=== PATIENT | female | born 1950 | race Caucasian/White ===

== ENCOUNTER 2020-11-26 08:43 | Outpatient (CLI) | payer MEDICARE, SELFPAY ==
[2020-11-26 08:57] LABS: Basophils Absolute Auto 0.03 K/mm3 (0.00-0.10); Basophils Percent Auto 0.7 % (0.0-1.0); Eosinophils Percent Auto 2.4 % (1.0-6.0); Hematocrit 42.1 % (35.0-42.0); Hemoglobin 14.6 g/dL (11.7-13.8); Immature Granulocyte Absolute 0.01 K/mm3 (0.00-0.00); Immature Granulocyte Percent A 0.2 % (0.0-0.0); Lymphocytes Absolute Auto 1.27 K/mm3 (1.10-4.50); Lymphocytes Percent Auto 30.2 % (18.0-42.0); Mean Corpuscular HGB Conc 34.7 g/dL (32.0-36.0); Mean Corpuscular Hemoglobin 32.4 pg (27.0-31.0); Mean Corpuscular Volume 93.6 fL (78.0-102.0); Mean Platelet Volume 9.7 fl (9.2-11.8); Monocytes Absolute Auto 0.26 K/mm3 (0.10-0.90); Monocytes Percent Auto 6.2 % (2.0-11.0); Neutrophils Absolute Auto 2.5 K/mm3 (1.7-7.2); Neutrophils Percent Auto 60.3 % (50.0-70.0); Platelet Count Result 234 K/mm3 (150-420); Red Cell Distribution Width 12.9 % (11.6-14.4); White Blood Count 4.2 K/mm3 (4.8-10.8)
[2020-11-26 09:55] LABS: Alanine Aminotransferase 28 U/L (14-59); Alkaline Phosphatase 62 U/L (46-116); Anion Gap 10 mmol/L (8-16); Aspartate Amino Transferase 16 U/L (15-37); Bilirubin,Total 1.1 mg/dL (0.00-1.00); Blood Urea Nitrogen 17 mg/dL (7-18); Calcium 9.1 mg/dL (8.5-10.1); Carbon Dioxide 27 mmol/L (21-32); Chloride 105 mmol/L (98-108); Cholesterol 232 mg/dL (0-200); Estimated Glomerular Filt Rate 53; Glucose 94 mg/dL (70-99); HDL Direct 44 mg/dL (40-60); LDL Cholesterol Calculated 152 mg/dL (<130); Osmolality Calculated 295 mOsm/kg (285-295); Potassium 4.7 mmol/L (3.5-5.1); Sodium 142 mmol/L (136-145); Triglycerides 182 mg/dL (0-150)
[2020-11-26 09:56] LABS: Thyroid Stimulating Hormone Reflex 2.77 u/IU/mL (0.36-3.74)
== END 2020-11-26 08:44 | disposition home or self-care (01) ==
LOC: CHSLAB 08:46
PROVIDERS: PCP Nurse Practitioner; Visit Provider Nurse Practitioner
DX: N93.9 Abnormal uterine and vaginal bleeding, unspecified (principal); Z13.6 Encounter for screening for cardiovascular disorders; E03.9 Hypothyroidism, unspecified
CPT/HCPCS: 36415; 80053; 80061; 84443; 85025

== ENCOUNTER 2021-02-07 12:38 | Outpatient (CLI) | payer MEDICARE, SELFPAY ==
--- NOTE | ~2021-02-07 | MM_ITS ---
EXAMINATION: MM screening [facility] HISTORY: Screening TECHNIQUE: Craniocaudal and mediolateral oblique 3-D tomosynthesis images were obtained and synthetic 2-D images were generated. CAD analysis was submitted and interpreted. COMPARISON: Comparison to multiple prior studies sequentially, with oldest reviewed study dated 08/2014. BREAST PARENCHYMAL COMPOSITION: Breast composed of scattered areas of fibroglandular density. FINDINGS: There is no evidence of suspicious mass, calcification, or architectural distortion to sugg est malignancy in either breast. There has been no suspicious interval change. IMPRESSION: 1. No mammographic evidence of malignancy. 2. Recommend routine screening mammography in one year. BI-RADS Category 1: Negative Reviewed, dictated and finalized at location A.
--- NOTE | ~2021-02-07 | DEXA_ITS ---
Bone Density Report Name: Kaitlyn Luong Age: 70 Sex: Female Ethnicity: White Date of : 1950 Indication: postmenopausal; screening for osteoporosis; Referring Provider: Courtney Leger Study: Bone densitometry was performed. Exam Date: February 07, 2021 Accession number: [id number] Bone Density: Region BMD T-score Z-score Classification AP Spine(L1-L4) 1.220 1.6 3.8 Normal Femoral Neck (Left) 0.821 -0.3 1.7 Normal Total Hip (Left) 1.017 0.6 2.2 Normal Femoral Neck (Right) 0.767 -0.7 1.2 Normal Total Hip (Right) 0.963 0.2 1.8 Normal Femoral Neck Mean 0.794 -0.5 1.4 Normal Total Hip Mean 0.990 0.4 2.0 Normal World Health Organization criteria for BMD impression classify patients as: Normal (T-score at or above -1.0), Osteopenia (T-score between -1.0 and -2.5), or Osteoporosis (T-score at or below -2.5). 10-year Fracture Risk: FRAX not reported because: All T-scores for Spine Total, Hip Total, Femoral Neck at or above -1.0 Clinical Information Provided by Patient: Patient maximum height was 68 Menopause Age: 50 No regular weight bearing exercise Does not regularly consume dairy products Onset of menses at age 10 Number of children 2 Impression: The patient has normal bone mass. Discussion: BONE DENSITY IS ABOVE THE MINIMUM DESIRABLE LEVEL AT ALL SKELETAL SITES TESTED. This patient?s bone mineral density is above the minimum desirable level (T-score -1.0 or better) at all sites measured. The patient should follow a healthful lifestyle (good nutrition with adequate calcium and vitamin D, and appropriate weight-bearing exercise). Follow-Up: Consider repeating this study in 5 years or sooner if there is some new clinical indication. Reported by: Dr. Ric Sanderson on 02/07/2021 1:30:00 PM. Reviewed, dictated and finalized at location AAgustin [facility]
== END 2021-02-07 12:39 | disposition home or self-care (01) ==
LOC: CHSIMG 12:39
PROVIDERS: PCP Nurse Practitioner; Visit Provider Nurse Practitioner
DX: Z78.0 Asymptomatic menopausal state (principal); Z12.31 Encounter for screening mammogram for malignant neoplasm of breast
CPT/HCPCS: 77063; 77067; 77080

== ENCOUNTER 2021-03-20 11:40 | Outpatient (CLI) | payer MEDICARE, SELFPAY ==
--- NOTE | ~2021-03-20 | XR_ITS ---
EXAMINATION: XR shoulder RT min 2V DATE: 03/20/2021 12:01 INDICATION: Posterior right shoulder pain TECHNIQUE: AP internally and externally rotated, AP oblique externally rotated and transscapular Y vi ews of the right shoulder were obtained. COMPARISON: None FINDINGS: Diffuse osteopenia. Normal alignment. No fracture. Mild glenohumeral osteoarthritis with inferior pr edominant mild nonuniform joint space narrowing. Moderate to severe acromioclavicular osteoarthritis. Soft tissues are unremarkable. Visualized portions of the right lung are clear. IMPRESSION: Moderate to severe right acromioclavicular and mild glenohumeral osteoarthritis. Reviewed, dictated and finalized at location A. GY DIRECTOR IMPRESSION: Moderate to severe right acromioclavicular and mild glenohumeral osteoarthritis .
== END 2021-03-20 11:41 | disposition home or self-care (01) ==
LOC: CHSIMG 11:43
PROVIDERS: PCP Nurse Practitioner; Visit Provider Nurse Practitioner
DX: M25.511 Pain in right shoulder (principal)
CPT/HCPCS: 73030

== ENCOUNTER 2022-01-13 09:23 | Outpatient (CLI) | payer MEDICARE, SELFPAY ==
[2022-01-13 10:02] LABS: Alanine Aminotransferase 30 U/L (14-59); Albumin Level 3.9 g/dL (3.4-5.0); Alkaline Phosphatase 70 U/L (46-116); Anion Gap 3 mmol/L (8-16); Aspartate Amino Transferase 14 U/L (15-37); Bilirubin,Total 0.9 mg/dL (0.00-1.00); Blood Urea Nitrogen 14 mg/dL (7-18); Calcium 8.9 mg/dL (8.5-10.1); Carbon Dioxide 30 mmol/L (21-32); Chloride 102 mmol/L (98-108); Cholesterol 217 mg/dL (0-200); Estimated Glomerular Filt Rate 51; Glucose 102 mg/dL (70-99); HDL Direct 42 mg/dL (40-60); LDL Cholesterol Calculated 132 mg/dL (<130); Osmolality Calculated 280 mOsm/kg (285-295); Potassium 4.5 mmol/L (3.5-5.1); Sodium 135 mmol/L (136-145); Total Protein 6.8 g/dL (6.4-8.2); Triglycerides 214 mg/dL (0-150)
[2022-01-13 10:28] LABS: Thyroid Stimulating Hormone Reflex 3.17 u/IU/mL (0.36-3.74)
[2022-01-13 10:40] LABS: Basophils Absolute Auto 0.03 K/mm3 (0.00-0.10); Basophils Percent Auto 0.6 % (0.0-1.0); Eosinophils Percent Auto 4.1 % (1.0-6.0); Hemoglobin 13.8 g/dL (11.7-13.8); Immature Granulocyte Absolute 0.01 K/mm3 (0.00-0.00); Immature Granulocyte Percent A 0.2 % (0.0-0.0); Lymphocytes Absolute Auto 1.67 K/mm3 (1.10-4.50); Lymphocytes Percent Auto 33.9 % (18.0-42.0); Mean Corpuscular HGB Conc 34.5 g/dL (32.0-36.0); Mean Corpuscular Hemoglobin 32.7 pg (27.0-31.0); Mean Corpuscular Volume 94.8 fL (78.0-102.0); Mean Platelet Volume 10.3 fl (9.2-11.8); Monocytes Absolute Auto 0.39 K/mm3 (0.10-0.90); Monocytes Percent Auto 7.9 % (2.0-11.0); Neutrophils Absolute Auto 2.6 K/mm3 (1.7-7.2); Neutrophils Percent Auto 53.3 % (50.0-70.0); Platelet Count Result 237 K/mm3 (150-420); Red Blood Count 4.22 M/mm3 (4.20-5.40); White Blood Count 4.9 K/mm3 (4.8-10.8)
[2022-01-15 17:19] LABS: Vitamin D 25 Hydroxy 29 ng/mL (30-100)
== END 2022-01-13 09:24 | disposition home or self-care (01) ==
LOC: CHSLAB 09:25
PROVIDERS: PCP Nurse Practitioner; Visit Provider Nurse Practitioner
DX: E78.2 Mixed hyperlipidemia (principal); E78.5 Hyperlipidemia, unspecified; E03.9 Hypothyroidism, unspecified; E55.9 Vitamin D deficiency, unspecified
CPT/HCPCS: 36415; 80053; 80061; 82306; 84443; 85025

== ENCOUNTER 2023-03-05 10:05 | Outpatient (CLI) | payer MEDICARE, SELFPAY ==
--- NOTE | ~2023-03-05 | DEXA_ITS ---
Bone Density Report Name: RICH PATTERSON Age: 72 Sex: Female Ethnicity: White Date of : 1950 Indication: postmenopausal; screening for osteoporosis; height loss; Referring Provider: SIVA, RAMSES Meyers Study: Bone densitometry was performed. Exam Date: March 05, 2023 Accession number: [id number] Bone Density: Region BMD T-score Z-score Classification AP Spine(L1-L4) 1.240 1.8 4.1 Normal Femoral Neck (Left) 0.796 -0.5 1.6 Normal Total Hip (Left) 1.014 0.6 2.3 Normal Femoral Neck (Right) 0.731 -1.1 1.0 Osteopenia Total Hip (Right) 0.958 0.1 1.9 Normal Femoral Neck Mean 0.764 -0.8 1.3 Normal Total Hip Mean 0.986 0.4 2.1 Normal World Health Organization criteria for BMD impression classify patients as: Normal (T-score at or above -1.0), Osteopenia (T-score between -1.0 and -2.5), or Osteoporosis (T-score at or below -2.5). 10-year Fracture Risk(1): Major Osteoporotic Fracture 9.5% Hip Fracture 1.4% Reported Risk Factors: [place] (), Neck BMD=0.731, BMI=31.0 (1) FRAX(R) Version 3.08. Fracture probability calculated for an untreated patient. Fracture probability may be lower if the patient has received treatment. Clinical Information Provided by Patient: Patient maximum height was 68 Menopause Age: 50 No regular weight bearing exercise Onset of menses at age 10 Number of children 2 Impression: The patient has low bone mass, based on the Right Femoral Neck T-score. Discussion: BONE DENSITY IS LOW AT ONE OR MORE SKELETAL SITES. This patient's lowest T-score is low at one or more skeletal sites. It meets the World Health Organization's (WHO) criteria for ?low bone mass? (T-score between -1.0 and -2.5). The patient's 10-year risk of fracture as calculated by FRAX is less than the threshold where pharmacological therapy is recommended by the National Osteoporosis Foundation (NOF). However, all treatment decisions require clinical judgment and consideration of individual patient factors, including patient preferences, comorbidities, previous drug use, risk factors not captured in the FRAX model (e.g., frailty, falls, vitamin D deficiency, increased bone turnover, interval significant decline in bone density) and possible under or overestimation of fracture risk by FRAX. The patient should follow a healthful lifestyle (good nutrition with adequate calcium and vitamin D, and appropriate weight-bearing exercise). Follow-Up: Consider repeating this study in 2 to 3 years to reassess this patient's status, or sooner if there is some new clinical indication. Reported by: Dr. Ric Sanderson on 03/05/2023 10:33:00 AM. Reviewed, dictated and finalized at location A.
[2023-03-05 10:52] LABS: Cholesterol 214 mg/dL (0-200); Glucose 96 mg/dL (70-99); HDL Direct 41 mg/dL (40-60); LDL Cholesterol Calculated 131 mg/dL (<130); Triglycerides 209 mg/dL (0-150)
[2023-03-08 11:53] LABS: Hepatitis C Virus Antibody Nonreactive
== END 2023-03-05 10:06 | disposition home or self-care (01) ==
LOC: CHSIMG 10:08
PROVIDERS: PCP Family Medicine; Visit Provider Family Medicine
DX: Z78.0 Asymptomatic menopausal state (principal); Z13.1 Encounter for screening for diabetes mellitus; Z11.59 Encounter for screening for other viral diseases; Z13.6 Encounter for screening for cardiovascular disorders; M85.88 Other specified disorders of bone density and structure, other site
CPT/HCPCS: 36415; 77080; 80061; 82947; 86803

== ENCOUNTER 2023-06-04 11:04 | Outpatient (CLI) | payer MEDICARE, SELFPAY ==
[2023-06-04 12:35] LABS: Alanine Aminotransferase 33 U/L (14-59); Albumin Level 3.7 g/dL (3.4-5.0); Alkaline Phosphatase 55 U/L (46-116); Anion Gap 12 mmol/L (8-16); Aspartate Amino Transferase 16 U/L (15-37); Bilirubin,Total 0.7 mg/dL (0.00-1.00); Blood Urea Nitrogen 22 mg/dL (7-18); Calcium 8.8 mg/dL (8.5-10.1); Carbon Dioxide 25 mmol/L (21-32); Chloride 102 mmol/L (98-108); Cholesterol 217 mg/dL (0-200); Estimated Glomerular Filt Rate 52; Glucose 113 mg/dL (70-99); HDL Direct 46 mg/dL (40-60); LDL Cholesterol Calculated 126 mg/dL (<130); Osmolality Calculated 292 mOsm/kg (285-295); Potassium 4.6 mmol/L (3.5-5.1); Sodium 139 mmol/L (136-145); Total Protein 6.6 g/dL (6.4-8.2); Triglycerides 227 mg/dL (0-150)
== END 2023-06-04 11:05 | disposition home or self-care (01) ==
LOC: CHSLAB 11:09
PROVIDERS: PCP Family Medicine; Visit Provider Family Medicine
DX: E78.00 Pure hypercholesterolemia, unspecified (principal)
CPT/HCPCS: 36415; 80053; 80061

== ENCOUNTER 2024-07-02 09:17 | Outpatient (CLI) | payer MEDICARE, SELFPAY ==
--- NOTE | ~2024-07-02 | XR_ITS ---
AP view of the pelvis and AP and lateral views of the bilateral hips Clinical history: Pain Findings: No acute fracture or dislocation is seen. Osseous alignment is anatomic. Bilateral hip and SI joint spaces are preserved. Soft tissues are unremarkable. Impression: No significant abnormality is seen. Reviewed, dictated and finalized at location . Impression: No significant abnormality is seen.
--- OUTSIDE RECORDS SUMMARY | 2024-07-02 09:22 | XMS_ITS | Referral Summary ---
Author Organization [facility] Address [address] [place] [address] Care Team Providers Care Animal Caretaker Supervisor Name Role Phone Samantha Barraza MD Primary Care Provider [phone] Source Comments [facility],non-owned Affiliates and Associated Physician Practices is amultiple site organization consisting of ambulatory clinics and hospital sitesin [place], [place], [place] and [place]. This disclosure is being madepursuant to the Care Everywhere program and may not contain all information available regarding this patient. Last updated 18.[facility] Social History Tobacco Use Types Packs/Day Years Used Date Smoking Tobacco: Never Assessed Sex and Gender Information Value Date Recorded Sex Assigned at Not on file Gender Identity Not on file Sexual Orientation Not on file Plan of Treatment Not on file Care Teams Animal Caretaker Supervisor Relationship Specialty Start Date End Date Samantha Barraza MD PCP - General 11/20/16
--- OUTSIDE RECORDS SUMMARY | 2024-07-02 09:22 | XMS_ITS | Clinical Summary ---
Author Organization [facility] Address [address] [place] [address] Care Team Providers Care Photographer Aerial Name Role Phone Samantha Barraza MD Primary Care Provider [phone] Source Comments [facility],non-owned Affiliates and Associated Physician Practices is amultiple site organization consisting of ambulatory clinics and hospital sitesin [place], [place], [place] and [place]. This disclosure is being madepursuant to the Care Everywhere program and may not contain all information available regarding this patient. Last updated 18.[facility] Social History Tobacco Use Types Packs/Day Years Used Date Smoking Tobacco: Never Assessed Sex and Gender Information Value Date Recorded Sex Assigned at Not on file Gender Identity Not on file Sexual Orientation Not on file Plan of Treatment Health Maintenance Due Date Last Done Comments BONE DENSITY TESTING 1950 COLOGUARD (AGES 45-75) - COL ON CA SCREENING 1950 COLON MONITORING 1950 COLONOSCOPY - COLON CA SCREENING 1950 CT COLONOGRAPHY - COLON CA SCREENING 1950 Colorectal Cancer Screening 1950 FIT - COLON CA SCREENING 1950 FLEX SIG - COLON CA SCREENING 1950 LIPID TESTING 1950 MAMMOGRAM 1950 HEPATITIS C SCREENING 12/24/1966 DTAP/TDAP/TD VACCINES (1 - Tdap) 12/29/1967 PNEUMOCOCCAL VACCINE 50+ (1 of 1 - PCV) 1998 ZOSTER VACCINE (1 of 2) 1998 COVID-19 VACCINE ( - 2023-2 5 season) 2023 INFLUENZA VACCINE (#1) 2023 Respiratory Syncytial Virus (RSV) Vaccine Pt: or over 60 yrs (1 - 1-dose 75+ series) 12/29/2023 DEPRESSION SCREENING 04/27/2024 HEPATITIS B VACCINE Aged Out No longe r eligible based on patient's age to complete this topic HIB VACCINE Aged Out No longer eligi ble based on patient's age to complete this topic HPV VACCINE Aged Out No longer eligi ble based on patient's age to complete this topic MENINGOCOCCAL (Group B) VACCINE Aged Out No longer eligible based on patient's age to complete this topic MENINGOCOCCAL VACCINE Aged Out No francisca amber eligible based on patient's age to complete this topic Care Teams Photographer Aerial Relationship Specialty Start Date End Date Samantha Barraza MD PCP - General 11/20/16
--- OUTSIDE RECORDS SUMMARY | 2024-07-02 09:22 | XMS_ITS | Patient Health Summary ---
Author Organization [facility] Address [address] [place] [address] Care Team Providers Care Strap Buckler Name Role Phone Samantha Barraza MD Primary Care Provider [phone] Note from [facility],non-owned Affiliates and Associated Physician Practices is amultiple site organization consisting of ambulatory clinics and hospital sitesin [place], [place], [place] and [place]. This disclosure is being madepursuant to the Care Everywhere program and may not contain all information available regarding this patient. Last updated 18.[facility] Social History Tobacco Use Types Packs/Day Years Used Date Smoking Tobacco: Never Assessed Sex and Gender Information Value Date Recorded Sex Assigned at Not on file Gender Identity Not on file Sexual Orientation Not on file Procedures * MRI BREAST BILAT WWO CONTRAST(Performed 11/20/2016) Results * MRI BREAST BILAT WWO CONTRAST (11/20/2016 9:23 AM CDT) Anatomical Region Laterality Modality Breast Bilateral Other Impressions 11/20/2016 11:49 AM CDT IMPRESSION: 1. Right breast: Spiculated mass in the lower central breast represents patient's biopsy-proven invasive ductal carcinoma. No evidence of multifocal disease, chest wall invasion, or axillary lymphadenopathy. 2. Left breast: No evidence of malignancy. ASSESSMENT: BI-RADS category 6: Known biopsy-proven cancer. RECOMMENDATION: Patient is already under the care of Dr. Camara. I, Dr. VIV MOLINA M.D. have personally reviewed and interpreted this examination/study. This report was electronically signed by VIV MOLINA M.D. on 11/20/2016 11:49 AM . Narrative 11/20/2016 11:49 AM CDT EXAMINATION: Magnetic resonance imaging (MRI) of the bilateral breasts without and with contrast TECHNIQUE: Multiplanar multisequence MRI imaging of both breasts before and following the administration of 8 mL Gadavist intravenous gadolinium contrast. Dynamic phase imaging was performed in the axial plane. Exam processed by and interpreted on a [employer] bartender server including 3-D volume rendering, subtraction image processing and, contrast kinetic analysis. HISTORY: 65-year-old female with outside institution biopsy-proven invasive ductal carcinoma in the lower inner right breast. COMPARISON: Comparison is made with mammograms from 01/08/2016, 07/13/2014, and 06/01/2014 as well as ultrasound breast from 07/13/2014 from [facility]. FINDINGS: Background tissue pattern: Scattered fibroglandular. Degree of background parenchymal enhancement: minimal. Right breast: An arterially enhancing spiculated mass in the lower central right breast representing the patient's biopsy-proven invasive ductal carcinoma measures 1.0 x 0.7 cm (series 7 image 90). The biopsy clip is immediately medial to the mass. No satellite lesion or additional suspicious area of enhancement is identified in the right breast. There is no abnormality of the right axilla, chest wall, or nipple areolar complex. Left breast: There is no suspicious mass or area of abnormal enhancement in the left breast. There is no abnormality of the left axilla, chest wall, or nipple areolar complex. Procedure Note Viv Molina MD - 07/24/2017 EXAMINATION: Magnetic resonance imaging (MRI) of the bilateral breastswithout and with contrast TECHNIQUE: Multiplanar multisequence MRI imaging of both breasts beforeand following the administration of 8 mL Gadavist intravenous gadoliniumcontrast. Dynamic phase imaging was performed in the axial plane. Examprocessed by and interpreted on a [employer] bartender server including 3-D volume rendering, subtraction imageprocessing and, contrast kinetic analysis. HISTORY: 65-year-old female with outside institution biopsy-proveninvasive ductal carcinoma in the lower inner right breast. COMPARISON: Comparison is made with mammograms from 01/08/2016, 07/13/2014,and 06/01/2014 as well as ultrasound breast from 07/13/2014 from [facility]. FINDINGS: Background tissue pattern: Scattered fibroglandular. Degree of background parenchymal enhancement: minimal. Right breast: An arterially enhancing spiculated mass in the lower centralright breast representing the patient's biopsy-proven invasive ductalcarcinoma measures 1.0 x 0.7 cm (series 7 image 90). The biopsy clip isimmediately medial to the mass. No satellite lesion or additional suspicious area of enhancement isidentified in the right breast. There is no abnormality of the rightaxilla, chest wall, or nipple areolar complex. Left breast: There is no suspicious mass or area of abnormal enhancementin the left breast. There is no abnormality of the left axilla, chestwall, or nipple areolar complex. IMPRESSION IMPRESSION: 1. Right breast: Spiculated mass in the lower central breast representspatient's biopsy-proven invasive ductal carcinoma. No evidence ofmultifocal disease, chest wall invasion, or axillary lymphadenopathy. 2. Left breast: No evidence of malignancy. ASSESSMENT: BI-RADS category 6: Known biopsy-proven cancer. RECOMMENDATION: Patient is already under the care of Dr. Camara. I, Dr. VIV MOLINA M.D. have personally reviewed and interpretedthis examination/study. This report was electronically signed by VIV MOLINA M.D. on11/20/2016 11:49 AM . Historical Provider MD [facility] Care Teams Strap Buckler Relationship Specialty Start Date End Date Samantha Barraza MD PCP - General 11/20/16
== END 2024-07-02 09:18 | disposition home or self-care (01) ==
LOC: CHSIMG 09:19
PROVIDERS: PCP Family Medicine; Visit Provider Family Medicine
DX: M70.62 Trochanteric bursitis, left hip (principal)
CPT/HCPCS: 73521

== ENCOUNTER 2025-02-24 14:05 | Outpatient (CLI) | payer MEDICARE, SELFPAY ==
--- NOTE | ~2025-02-24 | US_ITS ---
EXAMINATION: US pelvic complete INDICATION: N95.0 - Postmenopausal bleeding TECHNIQUE: Multiple transabdominal and transvaginal sonographic images of the pelvis were obtained. COMPARISON: None. FINDINGS: Uterus: The uterus is lobulated and contains multiple masses, consistent with fibroids. The largest one measures 7.6 cm in greatest diameter. The endometrium appears normal, with a thickness of 11 mm. Right Ovary: There is a soft tissue structure on the right which could represent an exophytic fibroid or an enlarged right ovary. The former is favored. Left Ovary: The left ovary appears normal.. Vascular flow is present. There is no free fluid in the pelvis. IMPRESSION: Enlarged fibroid uterus. Probable exophytic fibroid to the right versus less likely enlarged right ovary. The right ovary is not seen as a separate structure. This is not unusual. Reviewed, dictated and finalized at location A. IMPRESSION: Enlarged fibroid uterus. Probable exophytic fibroid to the right versus less li jazmyne enlarged right ovary. The right ovary is not seen as a separate structure. This is not unusual.
--- OUTSIDE RECORDS SUMMARY | 2025-02-24 14:08 | XMS_ITS | Clinical Summary ---
Author Organization [facility] Address [address] [place] [address] Care Team Providers Care Regional Transportation Manager Name Role Phone Unavailable Primary Care Provider Unavailabl e Encounters Date Type Department Care Team Description 01/03/2025 Telephone [facility] [address] [place] [address] Lety Christianson MD Orders (Heart Monitor ) from Last 3 Months Social History Tobacco Use Types Packs/Day Years Used Date Smoking Tobacco: Never Assessed Comments Unknown Sex and Gender Information Value Date Recorded Sex Assigned at Not on file Legal Sex Female 7:35 PM CDT Gender Identity Not on file Sexual Orientation Not on file Plan of Treatment Health Maintenance Due Date Last Done Comments Hepatitis C 1966 DTaP, Tdap and Td Vaccines ( 1 - Tdap) 12/29/1967 Pneumococcal Vaccine: 50+ Ye ars (1 of 1 - PCV) 1998 Zoster Vaccines (1 of 2) 1998 Annual Medicare Wellness Visit 2013 Dexa Scan (General) 2013 RSV Immunization or 60+ Years (1 - 1-dose 75+ series) 12/29/2023 COVID-19 Vaccine (2024-2 6 season) 2024 Influenza Adult (#1) 2025 Hepatitis A Vaccines Aged Out No long er eligible based on patient's age to complete this topic Meningococcal B Vaccine Aged Out No l onger eligible based on patient's age to complete this topic Meningococcal Vaccine Aged Out No francisca amber eligible based on patient's age to complete this topic RSV Immunizations Under 20 Months Aged Out No longer eligible based on patient's age to complete this topic Insurance [employer]ET[employer] MEDICARE
--- OUTSIDE RECORDS SUMMARY | 2025-02-24 14:08 | XMS_ITS | Clinical Summary ---
Author Organization [facility] Address [address] [place] [address] Care Team Providers Care Student Teaching Coordinator Name Role Phone Samantha Barraza MD Primary Care Provider [phone] Source Comments [facility],non-owned Affiliates and Associated Physician Practices is amultiple site organization consisting of ambulatory clinics and hospital sitesin [place], [place], [place] and [place]. This disclosure is being madepursuant to the Care Everywhere program and may not contain all information available regarding this patient. Last updated 18.[facility] Social History Tobacco Use Types Packs/Day Years Used Date Smoking Tobacco: Never Assessed Comments Unknown Sex and Gender Information Value Date Recorded Sex Assigned at Not on file Legal Sex Female 5:33 PM BUS ESCORT Gender Identity Not on file Sexual Orientation Not on file Plan of Treatment Health Maintenance Due Date Last Done Comments BONE DENSITY TESTING 1950 HEPATITIS C SCREENING 12/24/1966 DTAP/TDAP/TD VACCINES (1 - Tdap) 12/29/1967 PNEUMOCOCCAL VACCINE 50+ (1 of 1 - PCV) 1998 ZOSTER VACCINE (1 of 2) 1998 Respiratory Syncytial Virus (RSV) Vaccine Pt: or over 60 yrs (1 - 1-dose 75+ series) 12/29/2023 DEPRESSION SCREENING 04/27/2024 COVID-19 VACCINE ( - 2023-2 5 season) 2024 INFLUENZA VACCINE (#1) 2024 HEPATITIS B VACCINE Aged Out No longe r eligible based on patient's age to complete this topic HIB VACCINE Aged Out No longer eligi ble based on patient's age to complete this topic HPV VACCINE Aged Out No longer eligi ble based on patient's age to complete this topic MENINGOCOCCAL (Group B) VACC INE SHARED DECISION-MAKING Aged Out No longer eligibl e based on patient's age to complete this topic MENINGOCOCCAL GROUPS A/C/Y/W VACCINE Aged Out No longer eligible b ased on patient's age to complete this topic Care Teams Student Teaching Coordinator Relationship Specialty Start Date End Date Samantha Barraza MD PCP - General 11/20/16
== END 2025-02-24 14:06 | disposition home or self-care (01) ==
LOC: CHSIMG 14:06
PROVIDERS: PCP Family Medicine; Visit Provider Nurse Practitioner Family
DX: N95.0 Postmenopausal bleeding (principal); D25.9 Leiomyoma of uterus, unspecified
CPT/HCPCS: 76856

== ENCOUNTER 2025-04-14 02:51 | Day surgery (SDC) | payer MEDICARE, SELFPAY ==
[2025-04-12 09:49] VITALS: BMI 26.9
--- NOTE | 2025-04-12 09:57 | PC.NURSE ---
Addendum entered by Bhumi Odom RN 04/12/25 10:02: PT INSTRUCTED TO TAKE FLUOXETINE, LEVOTHYROXINE AND A PAIN PILL IF NEEDED MORNING OF SURGERY Original Note: [facility] has started construction of its new state of the art ER which will open Spring 2026. With this, we anticipate parking may be a challenge for some our surgical patients and families. Parking spaces are limited but are available for all Surgical, obstetrics, and ER patients sharing this lot. If you arrive and find you are having a hard time finding a parking space, please note that we understand the challenges, please drive around the hospital and park near Hospital Entrance 1. When you enter this entrance, you can ask a volunteer to direct or take you back to the surgical waiting area to check in. We appreciate everyone?s understanding of these expected challenges while we build for your future. Report to the Outpatient Waiting Room, entrance under the green pavilion located off [address], at time _1130_ on date ___04/14/25_. Planned Procedure Time: _1330__.? Time changes happen often and if your time is changed the preop area will call you the afternoon before. - You and your visitor will be asked to self-screen and do not enter if you have any COVID symptoms. Please call surgeon if you need to reschedule. - A mask is optional within the hospital at this time. Patients may have clear liquids (water, carbonated beverages, clear teas, apple juice) until 3 hours prior to surgery with a maximum of 20 ounces. - No food from midnight until time of surgery and no smoking, or chewing tobacco (or any form of nicotine). No chewing gum, candy or mints. Take only the following medications with a SIP of water on the morning of surgery: DO NOT STOP ANY OF YOUR OTHER PRESCRIPTION MEDICATIONS PRIOR TO SURGERY EXCEPT THE FOLLOWING Hold all vitamins and supplements for 3 days per anesthesiologist. Medications to discontinue per physician Date to take last dose Please no make-up, nail georgian, hairspray, perfume, deodorant, or body powder the day of surgery.? No jewelry (including any body piercings) or valuables the day of surgery, leave them at home.? Please take a shower or bath the night before, or the morning of, surgery with an antibacterial soap.? Wear comfortable, loose fitting clothing.? Children are encouraged to wear pajamas. - Jewelry must be removed prior to entering the operating room.? Rings and piercings that are not removed may be cut off. - The hospital will not accept responsibility for valuables.? - Please leave all valuables, including medications, at home the day of surgery. If you are going home after surgery, a licensed parts delivery driver must drive you home.? - NO public transportation without another adult if you receive anesthesia. - We recommend that an adult stay with you for 24 hours following discharge. - We also recommend that you do not drive, make important decision, drink alcoholic beverages, or take any drugs that were not prescribed by your health care provider for at least 24 hours after your discharge time. For Pediatric surgeries, we recommend two adults accompany the child home. Follow any additional instructions given to you from your surgeon. Telephone instructions given to _PATIENT_and asked if any additional questions and then verbalized understanding. Patient advised to call surgeon office or pre surgery nurse liaison [phone] if any additional questions.
--- OUTSIDE RECORDS SUMMARY | 2025-04-14 02:54 | XMS_ITS | Clinical Summary ---
Author Organization [facility] Address [address] [place] [address] Care Team Providers Care Blue Prints Trimmer Name Role Phone Unavailable Primary Care Provider Unavailabl e Social History Tobacco Use Types Packs/Day Years [...] - 1-dose 75+ series) 12/29/2023 COVID-19 Vaccine ( - 2024-2 6 season) 2024 Influenza Adult (#1) 2025 [...]
--- OUTSIDE RECORDS SUMMARY | 2025-04-14 02:54 | XMS_ITS | Clinical Summary ---
Author Organization [facility] Address [address] [place] [address] Care Team Providers Care Area Operations Director Name Role Phone Samantha Barraza MD Primary Care Provider [phone] Source Comments [facility],non-owned Affiliates and Associated Physician Practices is amultiple site organization consisting of ambulatory clinics and hospital sitesin [place], [place], [place] and [place]. This disclosure is being madepursuant to the Care Everywhere program and may not contain all information available regarding this patient. 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
--- NOTE | 2025-04-14 10:15 | PM.IMHP2 ---
H&P: HPI History of Present Illness Date/Time: 04/14/25 10:15 Chief Complaint: Postmenopausal bleeding Narrative: 74 y/o who has had abdominal pain and vaginal bleeding for months. She also has had a lot of low abdominal pain. A pelvic ultrasound exam on 02/24/25 which shows multiple uterine masses consistent with fibroids, the largest measuring 7.6 cm. The endometrial complex is 11 mm thick. She was unable to tolerate an exam in the office. I have recommended hysteroscopy with D&C to assess the endometetrium. Review of Systems Review of Systems: All systems reviewed & are unremarkable except as noted in HPI and below PMFSH Past Medical History Medical History Vaginal bleeding Depression Acquired hypothyroidism History of pulmonary embolism Surgical History Surgical History S/P partial thyroidectomy Family History Family History Sibling Cerebrovascular accident, Onset Age: 72 Social History Social History Smoking packs per day: 1 Smoking cigarettes per day: 20.0 Years smoked: 10 Smoking pack-years: 10.00 Smoking status: Former smoker Smoking end date: 04/27/88 Additional smoking assessment comments: QUIT 1999 Alcohol intake: former Living arrangements: alone Meds Home Medications and Allergies Home Medications ?Medication ?Instructions ?Recorded ?Confirmed ?Type levothyroxine 50 mcg tablet 50 mcg PO DAILY #90 tabs 06/09/22 04/12/25 Rx fluoxetine 20 mg capsule 20 mg PO DAILY #30 caps 09/29/22 04/12/25 Rx oxycodone-acetaminophen 5 mg-325 1 tablet PO Q6H PRN pain #20 tabs 04/13/25 Rx mg tablet (Endocet) Allergies Allergy/AdvReac Type Severity Reaction Status Date / Time Penicillins Allergy Unknown unknown Verified 04/12/25 09:44 Exam Const: Orientation/consciousness: patient oriented x3 Other: Well-developed, well-nourished female in no acute distress. Neck: Thyroid: thyroid normal Lymphatic: no lymphadenopathy noted (in neck, axilla or inguinal nodes) Resp: Effort & Inspection: normal respiratory effort Auscultation: clear to auscultation bilaterally Cardio: Rate: regular rate Rhythm: regular rhythm Heart sounds: S1 normal heart sound present and S2 normal heart sound present GI: Other: ABD: Soft, with an obvious pelvic mass that is globular and approximately 15 weeks gestational size. The mass is tender to palpation, but the remainder of the abdominal exam is nontender. No guarding or rebound tenderness. No hepatosplenomegaly. No umbilical or inguinal hernias noted. : General: Yes no CVA tenderness Other: Deferred. Back/Spine/Pelvis: Back: no CVA tenderness Skin: General skin exam: normal color and no rashes or lesions noted Neuro: General: patient oriented x3 Extrem: Other: Extremities: nontender with no edema Psych: Mental Status: mental status grossly normal Affect: normal affect Assessment and Plan Assessment and plan (1) Post-menopausal bleeding: Code(s): N95.0 - Postmenopausal bleeding Status: Acute Assessment and Plan: A: New onset painful pelvic mass with vaginal bleeding. P: I told the patient and her daughter that this is suspicious for cancer. I think the first step should be to sample the endometrium. Since this is not feasible in the office, I have offered hysteroscopy with dilation and sharp curettage in the operating room. She understands risks of surgery to include risks of anesthesia, risks of pain, infection, bleeding, blood products, thromboembolic phenomena and damage to adjacent structures such as bowel, bladder, ureters, blood vessels and nerves. She understands all these risks and elects to proceed with surgery. (2) Pelvic pain: Qualifiers: Laterality: bilateral Qualified Code(s): R10.23 - Pelvic and perineal pain bilateral Code(s): R10.20 - Pelvic and perineal pain unspecified side Status: Acute
[2025-04-14 11:25] VITALS: BP 150/61; PULSE 84; RESP 16; TEMP 36.3; O2SAT 100; BMI 26.4
--- NOTE | 2025-04-14 11:59 | WPDHPUPDATE1 ---
History and Physical Update Update Date/Time: 04/14/25 11:59 History and Physical has been reviewed, including an updated exam of the patient. There are NO changes in the patient's condition. Risks, benefits, and alternatives have been discussed and questions answered. Patient agrees to proceed with procedure.
[2025-04-14] MEDS: LACTATED RINGERS 1,000 ML 30 ML IV CONT (12:00)
[2025-04-14] MEDS: fentaNYL CITRATE INJ (*CRX) 100 MCG/2 ML VIAL 25 MCG IV PUSH ×2 (12:07→13:19)
[2025-04-14] MEDS: ACETAMINOPHEN 500 MG TABLET 1000 MG PO (12:09)
--- NOTE | 2025-04-14 13:22 | WPDANESEPP ---
Anes - Eval Pre Procedure Procedure: Operation Date: 04/14/25 13:30 Proposed Procedures p Hysteroscopy, Dilation and Curettage with Removal Any Endometrial Lesions as Needed - Du Minaya MD Date/Time: 04/14/25 13:22 Pre Op Diagnosis: post menopausal bleeding,pelvic pain,pelvic mass Patient Data Age: 74 Gender: F Height: 1.7 m Weight: 76.6 kg Last Vital Signs Temp 36.3 C L 04/14/25 11:25 Pulse 84 04/14/25 11:25 Resp 16 04/14/25 11:25 BP 150/61 H 04/14/25 11:25 Pulse Ox 100 04/14/25 11:25 O2 Del Method Room Air 04/14/25 11:25 Allergies Allergy/AdvReac Type Severity Reaction Status Date / Time Penicillins Allergy Unknown unknown Verified 04/12/25 09:44 Home Medications ?Medication ?Instructions ?Recorded ?Confirmed ?Type levothyroxine 50 mcg tablet 50 mcg PO DAILY #90 tabs 06/09/22 04/12/25 Rx fluoxetine 20 mg capsule 20 mg PO DAILY #30 caps 09/29/22 04/12/25 Rx oxycodone-acetaminophen 5 mg-325 1 tablet PO Q6H PRN pain #20 tabs 04/13/25 Rx mg tablet (Endocet) Patient hx anesthesia problems: none Family hx anesthesia problems: none Results Review: All pre-operative results and documents have been reviewed as part of the pre-operative evaluation. [facility]LY [facility] Past Medical History Medical History Vaginal bleeding Depression Acquired hypothyroidism History of pulmonary embolism Surgical History Surgical History S/P partial thyroidectomy Family History Family History Sibling Cerebrovascular accident, Onset Age: 72 Social History Social History Smoking packs per day: 1 Smoking cigarettes per day: 20.0 Years smoked: 10 Smoking pack-years: 10.00 Smoking status: Former smoker Smoking end date: 04/27/88 Additional smoking assessment comments: QUIT 1999 Alcohol intake: former Living arrangements: alone Exam Day of Procedure 04/14/25 13:22 Patient weight: normal Neurological: alert and oriented
[2025-04-14] MEDS: LIDOCAINE 1% LOCAL INJ 10 ML VIAL INFILTRATE (13:50)
--- NOTE | 2025-04-14 13:59 | S_PTH ---
PATIENT: Kaitlyn Luong LOC: [facility] U#:[id number] AGE/SX: 74/F ROOM: RE04/14/[address]: Du Minaya MD : [id number] BED: DIS: 04/14/2025 SPEC #: [id number] RECD: 04/17/25 07:18 STATUS: ZENOBIA RE #: [id number] KACI: 04/14/25 13:[address]: Du Minaya DEPT: [facility] Surgical RECD BY: Sneha Mai ENTERED: 04/17/25 07:18 SP TYPE: Surgical OTHR DR: Lety Christianson, Tissues: A - Endometrial Curettings Procedures: Hematoxylin and Eosin Stain Estrogen Receptor Immuno Progestogen Receptor immuno Gross and Microscopic Level 4 P53 MLH1 MSH2 MSH6 PMS2
--- NOTE | 2025-04-14 14:11 | W.PM.PROC2 ---
Procedure Note - Detailed Date of Procedure 04/14/25 Pre-op Diagnosis Postmenopausal bleeding Pelvic pain Post-op Diagnosis Same Procedure Performed Hysteroscopy Dilation and sharp curettage Surgeon Du Minaya MD Anesthesia MAC and Local (1% lidocaine) Findings Very thick endometrial tissue. Description of Procedure The patient was taken to the operating room where she was prepared and draped in the usual sterile fashion in the dorsal lithotomy position. A sterile speculum was placed into the vagina. The anterior lip of the cervix was grasped with single-tooth tenaculum. Ten mL of 1% lidocaine was administered in a paracervical block. The cervix was then gently dilated using Hegar dilators until an 8 mm dilator could be passed. Hysteroscopy was performed using sterile saline as a distention medium. Findings are as noted above. Sharp curettage was then gently performed, and copious endometrial curettings were collected on a Telfa pad and passed off to be sent to pathology. Hemostasis was excellent. Sponge, lap, needle and instrument counts were correct. The patient was awakened and taken to the recovery room in stable condition. I was present and scrubbed through the entire procedure. Implants None Estimated Blood Loss 100 Drains No Packing No Pathology Yes (Endometrial curettings) Complications None Condition Stable Disposition PACU [facility] Billing Surgery - Charge Forward: Surgery Billing
[2025-04-14 14:12] VITALS: BP 124/45; PULSE 78
[2025-04-14] MEDS: oxyCODONE HCL (*CRX) 5 MG TAB IR PO ×2 (14:30→15:35)
[2025-04-14 14:42] VITALS: BP 145/75; PULSE 73
[2025-04-14 15:12] VITALS: BP 160/57; PULSE 75
[2025-04-14 15:42] VITALS: BP 172/60; PULSE 75
--- NOTE | 2025-04-14 16:03 | SUR.PREOP ---
patient was having pain despite giving first dose of oxycodone 5mg. After one hour of no pain relief MD Minaya called and ordered received for an additional Oxycodone 5mg, Patient as of 1555 felt great and wanted to go home. Patient peripad was noted to have a medium amount of blood on pad. Patient discharged home with daughter.
== END 2025-04-14 16:02 | disposition home or self-care (01) ==
PROVIDERS: PCP Family Medicine; Visit Provider Obstetrics & Gynecology
PROC: 0U5B8ZZ Destruction of Endometrium, Via Natural or Artificial Opening Endoscopic (ICD-10-PCS; CPT 58563; principal; 2025-04-14 13:30)
DX: C54.1 Malignant neoplasm of endometrium (principal); F32.A Depression, unspecified; E03.9 Hypothyroidism, unspecified; Z79.891 Long term (current) use of opiate analgesic; Z98.890 Other specified postprocedural states; Z86.711 Personal history of pulmonary embolism; Z87.891 Personal history of nicotine dependence
CPT/HCPCS: 58558; 88305; 88342; A9270; J2003; J2704; J3010; J7120